=== PATIENT | female | born 2000 | race African-American/Black ===

== ENCOUNTER 2022-11-10 10:40 | Emergency (ER) | payer OTHER, SELFPAY ==
[2022-11-10 10:41] VITALS: BP 128/83; PULSE 88; RESP 16; TEMP 36.7; O2SAT 100; BMI 26.6
--- NOTE | 2022-11-10 10:56 | CT_ITS ---
STUDY: CT ABDOMEN AND PELVIS WITH CONTRAST REASON FOR EXAM: Female, 22 years old. RLQ and Right flank pain RADIATION DOSAGE (If Supplied By Facility): CTDIvol = ( 8.31 ) mGy, DLP = ( 371.81 ) mGycm TECHNIQUE: Transaxial images were obtained from the dome of the diaphragm to the symphysis pubis without oral contrast. IV 100mL Isovue-300 was administered. Sagittal and coronal images were reconstructed. Individualized dose optimization techniques were used for this CT. COMPARISON: None. FINDINGS: The visualized lung bases are unremarkable. The visualized portions of the heart are within normal limits. Normal liver. Normal gallbladder and extrahepatic biliary system. Normal spleen. Normal pancreas. Normal bilateral adrenal glands. Normal right kidney. Normal left kidney. Normal visualized stomach. Normal small intestine. Normal colon. The appendix is visualized and appears normal. Normal abdominal aorta. Normal inferior vena cava. Normal retroperitoneum. Normal urinary bladder. Small amount of free fluid is seen in the cul-de-sac. There is a 1.7 cm follicle in the left ovary. Normal abdominal wall. Normal osseous structures. CT/Abdomen/Pelvis W IV Cont ONLY IMPRESSION: A small amount of free fluid is seen in the cul-de-sac. Left ovarian follicle. Electronically Signed: Sukhi Emanuel MD at 12:03 EDT ,
--- NOTE | 2022-11-10 10:58 | EX.ED.DYSGE1 ---
HPI History of Present Illness Chief Complaint: Flank Pain Informant: patient Narrative Narrative: Patient presents with right flank pain and dysuria. Patient states that she started with dysuria frequency urgency and some hematuria on Monday. No fevers or chills. She states she really was not having any pain. No real discharge. She went to urgent care. An exam was done. They stated that she likely has a slight yeast infection was started on fluconazole. But they also checked the urine that was positive for infection. She was started on Macrobid. She has taken 3 doses of this. But last night and then this morning she noticed she has developed more pain in the right posterior flank and the right lower quadrant area. She has had not some nausea but no vomiting. Still no fevers. She still has some darker urine. She past medical history includes asthma and depression No allergies. No history of any abdominal surgeries. [facility] Medical History (Updated 11/10/22 @ 13:[address] Brennan Collins MD) Asthma Depression Home Medications ondansetron 4 mg disintegrating tablet 4 mg PO Q8H PRN PRN Nausea #10 tabs 11/10/22 [Rx Last Taken Unknown] sulfamethoxazole 800 mg-trimethoprim 160 mg tablet (Bactrim DS) 1 tab PO BID #20 tabs 11/10/22 [Rx Last Taken Unknown] Allergy/AdvReac Type Severity Reaction Status Date / Time No Known Allergies Allergy Verified 11/10/22 11:20 Social History Smoking Status: Never smoker ROS ROS ED ROS Narrative A complete review of systems was performed and is negative except as documented in the history of present illness. Some specific details below. Constitutional: No recent fevers or chills. No documented fever yesterday or today. EYE: No icterus ENT: No difficulty swallowing. No swelling. No pain. CV: No chest pain or palpitations. Respiratory: No dyspnea. No hemoptysis. No difficulty taking breaths. GI: Please see history of present illness. : Frequency, dysuria slight odor and hematuria as in history of present illness. Musculoskeletal: No recent trauma. No pains. He has some right flank pain but it does not seem to be motion related. Skin: No rash. Nondiaphoretic. Neuro: No weakness or numbness. Endocrine: No polyuria or polydipsia. EXAM Physical Exam Narrative Exam Narrative: CONSTITUTIONAL: Patient is nontoxic in appearance. The patient looks comfortable. HEENT: No notable trauma. Mucous membranes still moist. No sinus tenderness. No indication of pain with swallowing. EYES: No conjunctival injection. No icterus. CARDIOVASCULAR: Regular rate. Regular rhythm. No notable murmur. No JVD. RESPIRATORY: No respiratory distress. Breathing is unlabored. No wheezes. No rhonchi. No rales. No pain with a deep breath. GASTROINTESTINAL: Not distended. Bowel sounds are normal. Patient does have some mild right lower quadrant tenderness. But she has no rebounding or guarding. No mass. No suprapubic tenderness. GENITOURINARY: No tenderness over the bladder. She does have some mild right-sided CVA tenderness only with percussion but not with soft touch.. MUSCULOSKELETAL: Atraumatic. No peripheral edema. NEUROLOGICAL: Patient is alert and appropriate. No focal deficit noted. SKIN: No noted rashes. No diaphoresis. PSYCHIATRIC: Patient is calm. Mood is appropriate. Const Vital Signs: 11/10/22 10:41 11/10/22 11:11 11/10/22 11:16 Temperature 98.1 F 98.1 F Temperature Source Temporal Temporal Pulse Rate 88 88 Respiratory Rate 16 16 Respiratory Effort Normal Respiratory Pattern Normal Blood Pressure 128/83 H 128/83 H Blood Pressure Mean 98 98 Pulse Ox 100 100 Oxygen Delivery Method Room Air Room Air MDM MDM MDM Narrative Medical decision making narrative: 9Patient CBC is normal other than mild nonspecific anemia. Electrolytes are normal including glucose. Liver function test are normal Serum is negative Patient's urine shows positive nitrites, leukocyte Estrace and a large number of white cells all consistent with UTI. No red cells are seen. My independent interpretation the CT shows no appendicitis sign of kidney stone or other acute process. Final reading does shows small amount of fluid in the cul-de-sac and left ovarian cyst but she has no pain over there. She has no discharge. I do not think this represents pelvic infection. Patient's recheck. She feels much better after IV fluids Toradol and Zofran. She has no nausea at all. She is drank fluids. She would like to go home. I think this is a reasonable option. I will switch her to Bactrim as she just does not seem to be responding to Macrobid and I do have concerns of early pyelonephritis. We discussed reasons to return with high-priority being read current vomiting if she cannot keep her meds down. Lab Data Attestation: I reviewed the patient's lab results. Labs: Laboratory Results - last 24 hr 11/10/22 11/10/22 10:59 11:05 WBC 8.1 RBC 4.06 L Hgb 11.6 L Hct 34.9 L MCV 86.0 MCH 28.6 MCHC 33.2 RDW Std Deviation 47.5 H RDW Coeff of María 15.0 H Plt Count 264 MPV 10.6 Immature Gran % (Auto) 0.200 Neut % (Auto) 69.5 Lymph % (Auto) 17.2 L [place] % (Auto) 9.5 Eos % (Auto) 2.6 Baso % (Auto) 1.0 Absolute Neuts (auto) 5.6 Absolute Lymphs (auto) 1.39 Nucleated RBC % 0 Sodium 137 Potassium 3.7 Chloride 105 Carbon Dioxide 24.0 Anion Gap 8 BUN 7 Creatinine 0.77 Estim Creat Clear Calc 119.77 Est GFR (MDRD) Af Amer 121 Est GFR (MDRD) Non-Af 100 BUN/Creatinine Ratio 9.1 L Glucose 92 Calcium 9.1 Total Bilirubin 0.50 AST 13 L ALT 18 Alkaline Phosphatase 67 Total Protein 7.6 Albumin 3.7 Globulin 3.9 Albumin/Globulin Ratio 0.9 Serum , Qual NEGATIVE Urine Color Yellow Urine Clarity Clear Urine pH 6.5 Ur Specific Silva 1.005 Urine Protein Negative Urine Glucose (UA) Normal Urine Ketones Negative Urine Occult Blood Negative Urine Nitrite Positive H Urine Bilirubin 1 H Urine Urobilinogen 1 H Ur Leukocyte Esterase 500 H Urine RBC 0 SEEN Urine WBC 10-25 SEEN Ur Squamous Epith Cells 0-5 SEEN Urine Bacteria 1+ Urine Mucus 0 SEEN Radiography Diagnostic Testing: Clinical Impression(s) from Imaging Studies Abdomen/Pelvis CT 11/10/22 10:56 IMPRESSION: A small amount of free fluid is seen in the cul-de-sac. Left ovarian follicle. Electronically Signed: Sukhi Emanuel MD at 12:03 EDT , Discharge Plan Triage Chief Complaint: Flank Pain ED Provider: Brennan Collins Dx/Rx/DC Orders Clinical Impression: Pyelonephritis of right kidney, Nausea Instructions: ED Pyelonephritis, Female (Adult) Prescriptions: New ondansetron [ondansetron] 4 mg tablet,disintegrating 4 mg PO Q8H PRN PRN (Reason: Nausea) Qty: 10 0RF sulfamethoxazole-trimethoprim [Bactrim DS] 800-160 mg tablet 1 tab PO BID Qty: 20 0RF Primary Care Provider: Care Physician,No Primary Referrals: Edilia Lopez MD [Med Staff - [facility]] - 3-5 Days if not improving NOT,DEFINED [Non-Staff] - Disposition Disposition: Home, Self Care
[2022-11-10] MEDS: Ondansetron 4 MG/2 ML Vial IV (11:10)
[2022-11-10] MEDS: 0.9% Normal Saline 1,000 ML 1000 ML IV (11:10)
[2022-11-10] MEDS: Ketorolac 15 MG/ML Vial IV (11:10)
[2022-11-10 11:11] LABS: Mucous, Urine 0 SEEN /hpf (<or=2+); Red Blood Cells-Urine 0 SEEN /hpf (0-5)
[2022-11-10 11:12] LABS: Absolute Lymphocyte Count 1.39 X10^3/uL (0.83-4.51); Absolute Neutrophil Count 5.6 X10^3/uL (2.0-7.7); Basophil# 0.08 X10^3/uL; Eosinophil# 0.21 X10^3/uL; Eosinophils% 2.6 % (0-5); Hematocrit 34.9 % (37-47); Hemoglobin 11.6 g/dL (12.0-15.0); Lymphocyte # 1.39 X10^3/ul (0.83-4.51); Lymphocyte % 17.2 % (19-41); Mean Corp Hgb Conc 33.2 g/dL (32-36); Mean Corpuscular Hgb 28.6 pg (27.0-32.0); Mean Platelet Vol. 10.6 fl (6.2-12.0); Monocyte# 0.77 X10^3/uL; Monocyte% 9.5 % (0-10); NRBC Flagged by Analyzer 0 % (0-5); Neutrophil # 5.61 X10^3/uL (2.7-7.7); Neutrophil % 69.5 % (47-70); Platelet Count 264 K/mm3 (150-450); RBC Distribution Width SD 47.5 fl (35.1-43.9); Red Blood Count 4.06 M/mm3 (4.2-5.4); White Blood Count 8.1 K/mm3 (4.4-11.0)
[2022-11-10 11:16] VITALS: BP 128/83; PULSE 88; RESP 16; TEMP 36.7; O2SAT 100
[2022-11-10 11:17] LABS: Color, Urine Yellow (Yellow); Glucose, Dipstick Normal (Normal); Ketone-Dipstick Negative (Negative); Leukocyte Esterase-Dipstick 500 /ul (Negative); Nitrite-Dipstick Positive (Negative); Occult Blood-Urine Negative /ul (Negative); Protein-Dipstick Negative (Negative); Specific Gravity, Urine 1.005 (1.002-1.030); Urine Clarity Clear (Clear); Urine Urobilinogen 1 mg/dl (Normal); Urine pH 6.5 (5.0 - 8.0)
[2022-11-10 11:20] LABS: Internal QC Validated? YES +Cl - CLEAR BKGD; Pregnancy, Serum, hCG Quali. NEGATIVE Negative
[2022-11-10 11:20] LABS: Urine Bilirubin Dipstick 1 mg/dL (Negative)
[2022-11-10 11:26] LABS: White Blood Cells 10-25 SEEN /hpf (0-5)
[2022-11-10 11:27] LABS: Bacteria 1+ /hpf (None Seen); Squamous Epithelial Cells - UA 0-5 SEEN /hpf (5-10)
[2022-11-10 11:31] LABS: ALB/GLOB Ratio 0.9 RATIO (0.9-2.4); AST(SGOT) 13 U/L (15-37); Alanine Aminotransfer ALT/SGPT 18 U/L (13-56); Albumin, Serum 3.7 g/dL (3.2-5.0); Alkaline Phosphatase 67 U/L (45-117); Anion Gap 8 (5-15); BUN 7 mg/dL (7-18); BUN/Creat Ratio 9.1 RATIO (10-20); Calcium,Total 9.1 mg/dL (8.5-10.1); Chloride 105 mmol/L (98-107); Creatinine, Serum 0.77 mg/dL (0.55-1.02); EST Glomerular Filtration Rate 100 mL/min (>60); Est Glom Filt Rate - Afr Amer 121 mL/min (>60); Estimated Creatinine Clearance 119.77 ml/min; Globulin 3.9 g/dL (2.2-4.2); Glucose 92 mg/dL (74-106); Potassium 3.7 mmol/L (3.5-5.1); Protein, Total 7.6 g/dL (6.4-8.2); Sodium Level 137 mmol/L (136-145)
[2022-11-10] MEDS: Ceftriaxone 1 GM/50 ML BAG IV (12:46)
[2022-11-10 13:55] VITALS: RESP 18
== END 2022-11-10 13:57 | disposition home or self-care (01) ==
PROVIDERS: Emergency Provider Emergency Medicine; Visit Provider Emergency Medicine
DX: N12 Tubulo-interstitial nephritis, not specified as acute or chronic (principal); R11.0 Nausea; N83.202 Unspecified ovarian cyst, left side
CPT/HCPCS: 74177; 80053; 81001; 84703; 85025; 87077; 87086; 87088; 87186; 96365; 96375; 99284; J7030; J7050; Q9967; A4216; J2405